=== PATIENT | female | born 1935 | race Caucasian/White ===

== ENCOUNTER 2016-12-11 06:17 | Inpatient (IN) ==
[2016-12-11] MEDS ORDERED: Ipratropium/Albuterol Neb 3 ML IH ONE (06:36)
--- NOTE | 2016-12-11 06:38 | Emergency Department Note ---
Disposition Clinical Impression: Congestive heart failure Disposition: Admitted As Inpatient Condition: Fair Referrals: Efrain Renteria MD [Primary Care Provider] - Forms: ED Satisfaction Letter Time of Disposition: 08:06 (eulogio saucedakasia) SOB HPI - General Chief Complaint: ED Shortness of Breath/Dyspnea Stated Complaint: tess Time Seen by Provider: 12/11/16 06:22 Source: patient Mode of arrival: ambulatory Limitations: no limitations Nursing Notes Reviewed: Yes Vital Signs Reviewed: Yes - History of Present Illness Increasing shortness of breath for the past couple of days worse today unable to catch her breath denies any blurred vision double vision is having cough congestion thinks that she may be bringing up some phlegm denies history of congestive heart failure denies chest pain or chest pressure or shortness of breath denies nausea, hematochezia Pt Subjective Complaint: shortness of breath, cough Onset (ago): day(s) Severity: severe Consistency/Duration: constant Improves with: nothing Worsens with: lying flat, exertion, movement, coughing Associated symptoms: Reports: cough, wheezing, sputum production, orthopnea. Denies: chest pain, pain with inspiration, fever, lower extremity pain, polyuria , polydipsia, parasthesias, palpitations, hemoptysis, diaphoresis, nausea/ vomiting, syncope, abdominal pain, sense of impending doom Treatment prior to arrival: oxygen, bronchodilator Cough present: Yes Cough Description: Involuntary, Productive, Strong Sputum production: Yes Sputum Amount: Moderate Sputum Color: Yellow - Related Data Home Medications Medication Instructions Recorded Confirmed Clopidogrel Bisulfate [Plavix] 75 mg PO DAILY 06/14/16 08/02/16 Metoprolol [Lopressor] 50 mg PO BID 06/14/16 08/02/16 Rosuvastatin Calcium [Crestor] 10 mg PO DAILY 06/14/16 08/02/16 Aspirin [Lo-Dose Aspirin EC] 81 mg PO DAILY 08/02/16 08/02/16 Citalopram [CeleXA] 20 mg PO DAILY 08/02/16 08/02/16 Ranitidine HCl [Zantac] 300 mg PO DAILY 08/02/16 08/02/16 Ranolazine [Ranexa] 500 mg PO BID 08/02/16 08/02/16 Valsartan [Diovan] 80 mg PO DAILY 08/02/16 08/02/16 Previous Rx's Medication Instructions Recorded Nitrofurantoin (BID) [Macrobid] 100 mg PO BID #14 capsule 08/02/16 Allergies Allergy/AdvReac Type Severity Reaction Status Date / Time Hydroxychloroquine Allergy Blurry Verified 12/11/16 06:18 [From Plaquenil] Vision Penicillins Allergy Swelling Verified 12/11/16 06:18 of Lip/Tongue/Throat All systems ED: reviewed and negative except as stated. Constitutional: Denies: fever, chills Eyes: Denies: eye pain ENT ED: Denies: congestion Cardiovascular: Denies: chest pain, palpitations Respiratory: Reports: cough, dyspnea, wheezes, sputum production Gastrointestinal: Denies: abdominal pain, nausea Genitourinary: Denies: urgency, dysuria Musculoskeletal: Denies: back pain Integumentary: Denies: abrasion Neurological: Denies: headache Psychiatric: Denies: anxiety Endocrine: Denies: fatigue Hematological/Lymphatic: Denies: easy bleeding Allergic/Immunologic: Denies: facial swelling Past Medical History - Past Medical History Attestation: Yes The following information was validated with the patient. Source: patient, old records reviewed, nursing notes reviewed Medical history: Reports: hypertension, myocardial infarction Psychiatric history: Reports: anxiety - Social History Smoking Status: Never smoker Smokeless Tobacco Status: No Alcohol use: Reports: none Drug use: Reports: none Physical Exam - General Limitations: no limitations General appearance: alert, in no apparent distress, anxious - Head Head exam: atraumatic, normocephalic, normal inspection - Eye Eye exam: Present: normal appearance, PERRL, EOMI - ENT ENT exam: normal exam, normal oropharynx, mucous membranes moist, TM's normal bilaterally, normal external ear exam - Neck Neck exam: Present: normal inspection, full ROM, trachea midline - Chest Chest inspection: Present: normal inspection, symmetric chest wall rise - Respiratory Respiratory exam: Present: accessory muscle use, prolonged expiratory phase, other (diminished wet moist cough) - Cardiovascular Cardiovascular exam: Present: regular rate, normal rhythm, normal heart sounds - Abdominal Exam Abdominal exam: Present: soft, Non-Tender, normal bowel sounds. Absent: mass, pulsatile mass - Extremities Exam Extremities exam: Present: normal inspection, full ROM, normal capillary refill. Absent: tenderness, joint swelling - Expanded Lower Extremity Exam Neurovascular/Tendon exam: Present: normal capillary refill, normal fine/light touch Gait: observed and normal - Back Exam Back exam: Present: normal inspection, full ROM. Absent: muscle spasm - Neurological Exam Neurological exam: Present: alert, oriented X3, CN II-XII intact - Psychiatric Psychiatric exam: Present: normal affect, normal mood - Skin Skin exam: Present: warm, dry, intact, normal color Course Course Narrative: pt seen and examined aerosol and cxr and lab - Reevaluation(s) Reevaluation #1: Labs show signs are consistent with congestive heart failure she was given Bumex will discuss with Dr. Park for possible admission versus transfer Vital Signs Temperature 98.9 F 12/11/16 06:18 Pulse Rate 95 12/11/16 06:18 Respiratory Rate 22 12/11/16 06:18 Blood Pressure 137/72 12/11/16 06:18 O2 Sat by Pulse Oximetry 92 12/11/16 06:18 Temperature 98.9 F 12/11/16 06:21 Pulse Rate 87 12/11/16 07:20 Respiratory Rate 22 12/11/16 07:20 Blood Pressure 127/68 12/11/16 07:20 O2 Sat by Pulse Oximetry 97 12/11/16 07:20 Oxygen Delivery Oxygen Delivery Nasal Cannula Shortness of Breath/Dyspnea - Differential Diagnosis Likely: acute exacerbation of chronic obstructive airways disease, congestive heart failure, pneumonia - Medical Records Medical records reviewed: Yes I reviewed the patient's medical records. - Lab Data Lab results reviewed: Yes I reviewed the patient's lab results. Result diagrams: 12/11/16 06:46 12/11/16 06:46 Lab Results 12/11/16 12/11/16 12/11/16 Range/Units 06:46 06:46 06:46 WBC 9.0 (4.3-11.1) K/mcL RBC 3.28 L (3.82-4.97) M/mcL Hgb 11.2 L (11.5-15.4) g/dL Hct 35.0 L (35.3-44.9) % MCV 106.7 H (83.0-100.0) fL MCH 34.1 H (28.0-33.3) pg MCHC 32.0 (31.6-35.5) g/dL RDW 13.4 (11.5-14.5) % Plt Count 128 L (140-400) K/mcL MPV 11.0 (9.4-12.4) fL Immature Gran % 0.7 (0-4) % Seg Neutrophils % 78.9 % Lymphocytes % 12.5 % Monocytes % 5.6 % Eosinophils % 2.1 % Basophils % 0.2 % Neutrophils # 7.1 (1.6-8.9) K/mcL Lymphocytes # 1.1 (0.6-4.6) K/mcL Monocytes # 0.5 (0.0-1.3) K/mcL Eosinophils # 0.2 (0.0-0.6) K/mcL Basophils # 0.0 (0.0-0.2) K/mcL PT (9.4-12.1) Seconds INR APTT 24.7 L (26.0-36.0) Seconds VBG Lactic Acid (0.5-2.2) mmol/L Sodium 141 (136-145) mEq/L Potassium 4.5 (3.5-4.5) mEq/L Chloride 108 (98-109) mEq/L Carbon Dioxide 21 (19-29) mEq/L BUN 25 H (7-20) mg/dL Creatinine 1.51 H (0.57-1.11) mg/dL Est GFR ( Amer) 40 L (> 60) Est GFR (Non-Af Amer) 33 L (> 60) BUN/Creatinine Ratio 17 (6-26) Glucose 185 H (70-99) mg/dL Calculated Osmolality 301 H (280-300) Calcium 9.1 (8.6-10.8) mg/dL Total Bilirubin 0.7 (0.2-1.2) mg/dL AST 27 (5-34) Units/L ALT 19 (0-55) Units/L Alkaline Phosphatase 68 (38-126) Units/L Troponin I (0-0.03) ng/mL B-Natriuretic Peptide (0-100) pg/mL Serum Total Protein 6.9 (6.0-8.3) g/dL Albumin 3.6 (3.5-5.0) g/dL Globulin 3.3 (2.4-3.5) g/dL Albumin/Globulin Ratio 1.1 (1.1-2.2) 12/11/16 12/11/16 12/11/16 Range/Units 06:46 06:46 06:46 WBC (4.3-11.1) K/mcL RBC (3.82-4.97) M/mcL Hgb (11.5-15.4) g/dL Hct (35.3-44.9) % MCV (83.0-100.0) fL MCH (28.0-33.3) pg MCHC (31.6-35.5) g/dL RDW (11.5-14.5) % Plt Count (140-400) K/mcL MPV (9.4-12.4) fL Immature Gran % (0-4) % Seg Neutrophils % % Lymphocytes % % Monocytes % % Eosinophils % % Basophils % % Neutrophils # (1.6-8.9) K/mcL Lymphocytes # (0.6-4.6) K/mcL Monocytes # (0.0-1.3) K/mcL Eosinophils # (0.0-0.6) K/mcL Basophils # (0.0-0.2) K/mcL PT 12.1 (9.4-12.1) Seconds INR 1.1 APTT (26.0-36.0) Seconds VBG Lactic Acid (0.5-2.2) mmol/L Sodium (136-145) mEq/L Potassium (3.5-4.5) mEq/L Chloride (98-109) mEq/L Carbon Dioxide (19-29) mEq/L BUN (7-20) mg/dL Creatinine (0.57-1.11) mg/dL Est GFR ( Amer) (> 60) Est GFR (Non-Af Amer) (> 60) BUN/Creatinine Ratio (6-26) Glucose (70-99) mg/dL Calculated Osmolality (280-300) Calcium (8.6-10.8) mg/dL Total Bilirubin (0.2-1.2) mg/dL AST (5-34) Units/L ALT (0-55) Units/L Alkaline Phosphatase (38-126) Units/L Troponin I 0.06 H* (0-0.03) ng/mL B-Natriuretic Peptide 1648 H (0-100) pg/mL Serum Total Protein (6.0-8.3) g/dL Albumin (3.5-5.0) g/dL Globulin (2.4-3.5) g/dL Albumin/Globulin Ratio (1.1-2.2) 12/11/16 Range/Units 06:46 WBC (4.3-11.1) K/mcL RBC (3.82-4.97) M/mcL Hgb (11.5-15.4) g/dL Hct (35.3-44.9) % MCV (83.0-100.0) fL MCH (28.0-33.3) pg MCHC (31.6-35.5) g/dL RDW (11.5-14.5) % Plt Count (140-400) K/mcL MPV (9.4-12.4) fL Immature Gran % (0-4) % Seg Neutrophils % % Lymphocytes % % Monocytes % % Eosinophils % % Basophils % % Neutrophils # (1.6-8.9) K/mcL Lymphocytes # (0.6-4.6) K/mcL Monocytes # (0.0-1.3) K/mcL Eosinophils # (0.0-0.6) K/mcL Basophils # (0.0-0.2) K/mcL PT (9.4-12.1) Seconds INR APTT (26.0-36.0) Seconds VBG Lactic Acid 1.9 (0.5-2.2) mmol/L Sodium (136-145) mEq/L Potassium (3.5-4.5) mEq/L Chloride (98-109) mEq/L Carbon Dioxide (19-29) mEq/L BUN (7-20) mg/dL Creatinine (0.57-1.11) mg/dL Est GFR ( Amer) (> 60) Est GFR (Non-Af Amer) (> 60) BUN/Creatinine Ratio (6-26) Glucose (70-99) mg/dL Calculated Osmolality (280-300) Calcium (8.6-10.8) mg/dL Total Bilirubin (0.2-1.2) mg/dL AST (5-34) Units/L ALT (0-55) Units/L Alkaline Phosphatase (38-126) Units/L Troponin I (0-0.03) ng/mL B-Natriuretic Peptide (0-100) pg/mL Serum Total Protein (6.0-8.3) g/dL Albumin (3.5-5.0) g/dL Globulin (2.4-3.5) g/dL Albumin/Globulin Ratio (1.1-2.2) - Radiology Data Radiology results reviewed: Yes I reviewed the patient's radiology results. ITS Impressions Chest X-Ray 12/11/16 06:35 IMPRESSION: 1. Central congestion without overt pulmonary edema. 2. Small left pleural effusion. 3. Severe left glenohumeral degenerative changes. D/ / Homero Lantigua MD / Homero Lantigua MD Interpreting Provider: Homero Lantigua MD - EKG Data EKG attestation: Yes I reviewed and interpreted this EKG. EKG results narrative: sinus Rhythm nonspecific T-wave change unifocal PVC rate 94 pr 188 QRS 95 QT 333 axis -17 Critical Care Time Critical Care Time: No
[2016-12-11 07:02] LABS: Basophils % 0.2 %; Eosinophils # 0.2 K/mcL (0.0-0.6); Eosinophils % 2.1 %; Hemoglobin 11.2 g/dL (11.5-15.4); Immature Granulocytes % 0.7 % (0-4); Lymphocytes # 1.1 K/mcL (0.6-4.6); Lymphocytes % 12.5 %; Mean Corpuscular Hemoglobin 34.1 pg (28.0-33.3); Mean Corpuscular Volume 106.7 fL (83.0-100.0); Monocytes # 0.5 K/mcL (0.0-1.3); Monocytes % 5.6 %; Neutrophils # 7.1 K/mcL (1.6-8.9); Platelet Count 128 K/mcL (140-400); Red Blood Count 3.28 M/mcL (3.82-4.97); Red Cell Distribution Width 13.4 % (11.5-14.5); Segmented Neutrophils % 78.9 %
[2016-12-11 07:08] LABS: INR 1.1; Prothrombin Time 12.1 Seconds (9.4-12.1)
[2016-12-11 07:17] LABS: Albumin 3.6 g/dL (3.5-5.0); Albumin/Globulin Ratio 1.1 (1.1-2.2); Bilirubin,Total 0.7 mg/dL (0.2-1.2); Calcium 9.1 mg/dL (8.6-10.8); Globulin 3.3 g/dL (2.4-3.5); Potassium 4.5 mEq/L (3.5-4.5); Total Protein 6.9 g/dL (6.0-8.3)
[2016-12-11] MEDS ORDERED: Bumetanide 1 MG/4 ML VIAL IVP ONE (07:25)
[2016-12-11] MEDS ORDERED: Ondansetron ODT 4 MG TAB.RAPDIS SL PRN (08:30)
[2016-12-11] MEDS ORDERED: Naloxone 0.4 MG/ML INJ IVP PRN (08:30)
[2016-12-11 08:54] LABS: Bilirubin,Urine Negative (Negative); Blood,Urine Negative (Negative); Clarity,Urine Clear (Clear); Color,Urine Yellow (Yellow); Glucose,Urine (UA) Normal (Normal); Ketones,Urine Negative (Negative); Leukocyte Esterase,Urine Negative (Negative); Nitrite,Urine Negative (Negative); Protein,Urine Negative (Neg-Trace); Specific Gravity,Urine 1.015 (1.010-1.025); Urobilinogen,Urine Normal (Normal)
[2016-12-11] MEDS ORDERED: Nitrofurantoin (BID) 100 MG CAPSULE PO SCH (09:00)
[2016-12-11] MEDS: Valsartan 80 MG TABLET PO SCH (09:35)
[2016-12-11] MEDS: Aspirin Enteric Coated 81 MG Tablet PO SCH (09:35)
[2016-12-11] MEDS: Ranolazine 500 MG TAB.ER.12H PO SCH ×2 (09:36→20:43)
[2016-12-11] MEDS: Famotidine 20 MG TABLET PO SCH (09:36)
[2016-12-11] MEDS: Bumetanide 1 MG/4 ML VIAL IVP SCH (17:37)
--- NOTE | 2016-12-11 17:38 | Internal Med History&Physical ---
Date of Encounter: 12/11/16 Time of Encounter: 16:45 Assessment and Plan (1) Dyspnea Current visit: Yes Status: Chronic Suspect multifactorial etiology including underlying systolic and diastolic heart failure with possible superimposed respiratory infection Qualifiers: Dyspnea type: unspecified Qualified Code(s): R06.00 - Dyspnea, unspecified (2) CKD (chronic kidney disease) stage 3, GFR 30-59 ml/min Current visit: Yes Status: Chronic Renal indices will be monitored periodically. (3) Macrocytic anemia Current visit: Yes Status: Chronic Anemia testing and TSH will be ordered in a.m. (4) Hypertension Current visit: Yes Status: Chronic Continue Diovan and Lopressor. IV Bumex has been ordered Qualifiers: Hypertension type: essential hypertension Qualified Code(s): I10 - Essential (primary) hypertension (5) ASHD (arteriosclerotic heart disease) Current visit: Yes Status: Acute Continue aspirin, Plavix, and Lopressor. Will add isosorbide. Internal Medicine - H&P: HPI Chief complaint: Dyspnea Admitted From: Home Plans for Post Hospital Care: Home History of present illness: Ms. Palomo is a 81 year old female who came to emergency room complaining of increased dyspnea onset December 09. She reports she was having a minimally productive cough and felt she was getting a "cold". She denies chest pain vomiting or diarrhea. She was evaluated in emergency room and was felt to have exacerbation of CHF. She was admitted to [facility] floor for ongoing care needs. Her cardiovascular history is significant for hypertension. She has known ASHD and has had 3 myocardial infarctions with the most recent 2013. She had 5 vessel CABG 2012. She had 3 cardiac stents placed in 2002. Her most recent heart catheter was 2013 at the last [place] without further intervention done. Echocardiogram done August 2016 showed LVEF of 25-30%. There was mild diastolic dysfunction and severe global LV systolic dysfunction. There was mild -to-moderate AR. The estimated RVSP was elevated at 43 mmHg. She has had 8 syncopal episodes with falls with the most recent one being approximately 5 weeks ago. She is presently wearing a threat monitoring analyst which was ordered by her [place] warp hanger. She had DVT 2004 and was briefly on Coumadin. Past Med Surg Social Fam HX - Past Medical History Medical history: CHF, hypertension, myocardial infarction Psychiatric history: anxiety - Past Surgical History Surgical History: cholecystectomy, hysterectomy - Social History Smoking Status: Never smoker Smokeless Tobacco Status: No Alcohol use: none Drug use: none Internal Medicine - H&P: Meds Clopidogrel Bisulfate [Plavix] 75 mg PO DAILY 06/14/16 [History] Metoprolol [Lopressor] 50 mg PO BID 06/14/16 [History] Rosuvastatin Calcium [Crestor] 10 mg PO DAILY 06/14/16 [History] Aspirin [Lo-Dose Aspirin EC] 81 mg PO DAILY 08/02/16 [History] Citalopram [CeleXA] 20 mg PO DAILY 08/02/16 [History] Nitrofurantoin (BID) [Macrobid] 100 mg PO BID #14 capsule 08/02/16 [Rx] Ranitidine HCl [Zantac] 300 mg PO DAILY 08/02/16 [History] Ranolazine [Ranexa] 500 mg PO BID 08/02/16 [History] Valsartan [Diovan] 80 mg PO QWEEK 08/02/16 [History] Allergies Hydroxychloroquine [From Plaquenil] Allergy (Verified 12/11/16 06:18) Blurry Vision Penicillins Allergy (Verified 12/11/16 06:18) Swelling of Lip/Tongue/Throat All Systems PM: A 10-system review of systems was performed and is negative for pertinent findings except as documented above in the HPI. Review of systems: Gen.: She states her weight has been stable the past few months Cardiovascular: As per history of present illness Respiratory: She is a lifelong nonsmoker and has no documented chronic lung disease GI: She has had cholecystectomy. She denies disorders of her liver or exocrine pancreas. She denies melena or hematochezia vomiting or diarrhea. : She was told that she had kidney failure at the time of her CABG in 2012. She has had remote kidney stone. She denies other kidney or bladder disorders. She has had a hysterectomy and bladder suspension surgery Neurologic: She denies large distribution strokes or seizures. Endocrine: She has hyperlipidemia but denies diabetes or thyroid disease Hematology/oncology: She denies blood disorders cancers or anemia Psychiatric: She has anxiety but denies depression or other mental health issues Musk skeletal: She has rheumatoid arthritis and DJD. She has had multiple back surgeries. She has had bilateral total hip replacements and a left total knee replacement remotely. - Constitutional Vitals: Temp Pulse Resp BP Pulse Ox 98.2 F 67 16 126/66 97 12/11/16 15:41 12/11/16 15:41 12/11/16 15:41 12/11/16 15:41 12/11/16 15:41 Exam: Gen.: She is a well-developed well-nourished female who appears mildly dyspneic at the present time HEENT: Head is atraumatic and normocephalic. Eyes: EOMI. There is no scleral icterus. Mouth: Mucosa is moist. Neck: Supple and nontender. There is no thyromegaly or adenopathy noted. Heart: Regular without murmurs gallops or ectopics Lungs: No wheezes or crackles are heard. She has mild prolonged expiratory phase. Abdomen: Soft and nontender. No masses or guarding are noted. Extremities: There is no cyanosis edema or clubbing noted. Dorsalis pedis and posttibial pulses are 1-2 over 2 bilaterally. Neurologic: Mental status: She is talkative and a good historian. Cranial nerves: Smile is symmetric. Forehead wrinkles bilaterally. Tongue protrudes midline. EOMI. Motor: There is no pronator drift. Cerebellar: Finger to nose is intact bilaterally. Skin: Warm and dry Internal Med - H&P Results - Labs CBC & Chem 7: 12/11/16 06:46 12/11/16 06:46 Labs: Cardiac Enzymes 12/11/16 Range/Units 11:55 Troponin I 0.07 H* (0-0.03) ng/mL Urine 12/11/16 Range/Units 08:44 Urine Color Yellow (Yellow) Urine Clarity Clear (Clear) Urine pH 5.0 (5.0-8.0) pH Units Ur Specific [place] 1.015 (1.010-1.025) Urine Protein Negative (Neg-Trace) mg/dL Urine Glucose (UA) Normal (Normal) mg/dL
[2016-12-11] MEDS: Isosorbide MONOnitrate (24 HR) 30 MG TAB.ER.24H PO SCH (18:38)
[2016-12-12 05:57] LABS: Basophils % 0.1 %; Hematocrit 31.7 % (35.3-44.9); Hemoglobin 10.4 g/dL (11.5-15.4); Immature Granulocytes % 0.5 % (0-4); Lymphocytes # 0.7 K/mcL (0.6-4.6); Lymphocytes % 6.9 %; Mean Corpuscular HGB Conc 32.8 g/dL (31.6-35.5); Mean Corpuscular Hemoglobin 34.6 pg (28.0-33.3); Mean Corpuscular Volume 105.3 fL (83.0-100.0); Mean Platelet Volume 10.9 fL (9.4-12.4); Monocytes # 0.6 K/mcL (0.0-1.3); Monocytes % 5.7 %; Neutrophils # 8.3 K/mcL (1.6-8.9); Platelet Count 131 K/mcL (140-400); Red Blood Count 3.01 M/mcL (3.82-4.97); Red Cell Distribution Width 13.6 % (11.5-14.5); Segmented Neutrophils % 86.8 %
[2016-12-12 06:19] LABS: Calcium 9.1 mg/dL (8.6-10.8); Magnesium 2.2 mg/dL (1.6-2.6); Phosphorous 4.6 mg/dL (2.3-4.7); Potassium 4.4 mEq/L (3.5-4.5)
[2016-12-12] MEDS: Isosorbide MONOnitrate (24 HR) 30 MG TAB.ER.24H PO SCH (08:25)
[2016-12-12] MEDS: Ranolazine 500 MG TAB.ER.12H PO SCH ×2 (08:25→20:16)
[2016-12-12] MEDS: Famotidine 20 MG TABLET PO SCH (08:25)
[2016-12-12] MEDS: Aspirin Enteric Coated 81 MG Tablet PO SCH (08:25)
[2016-12-12] MEDS: Valsartan 80 MG TABLET PO SCH (08:26)
--- NOTE | 2016-12-12 10:15 | Internal Med Progress Note ---
Date of Encounter: 12/12/16 Time of Encounter: 10:00 - Assessment and plan (1) Dyspnea Current Visit: Yes Status: Chronic Assessment and plan: December 12. We will add Symbicort and order chest CT since the WBC differential is shifted further to the left. Qualifiers: Dyspnea type: unspecified Qualified Code(s): R06.00 - Dyspnea, unspecified (2) CKD (chronic kidney disease) stage 3, GFR 30-59 ml/min Current Visit: Yes Status: Chronic Assessment and plan: December 12. Renal indices slightly improved today. Continue to monitor periodically. (3) Macrocytic anemia Current Visit: Yes Status: Chronic Assessment and plan: December 12. We will check anemia testing and TSH. (4) Hypertension Current Visit: Yes Status: Chronic Assessment and plan: December 12. Blood pressure satisfactorily controlled. Continue Diovan, Lopressor, and IV Bumex Qualifiers: Hypertension type: essential hypertension Qualified Code(s): I10 - Essential (primary) hypertension (5) ASHD (arteriosclerotic heart disease) Current Visit: Yes Status: Acute Assessment and plan: December 12. Continue aspirin, Plavix, Lopressor, and isosorbide - Subjective Interval history: December 12. She is still dyspneic but states she is improved. - Constitutional Vitals: Temp Pulse Resp BP Pulse Ox 97.6 F 69 16 119/69 98 12/12/16 07:55 12/12/16 07:55 12/12/16 07:55 12/12/16 07:55 12/12/16 07:55 Exam: Her affect is bright and cheerful. Heart is regular without murmurs gallops or ectopics. Lungs show slightly prolonged expiratory phase but no audible wheezing. There are no inspiratory crackles. I reviewed her medications and lab results. Internal Medicine: Result - Labs CBC & Chem 7: 12/12/16 05:34 12/12/16 05:34 Labs: Short CBC 12/12/16 Range/Units 05:34 WBC 9.6 (4.3-11.1) K/mcL Hgb 10.4 L (11.5-15.4) g/dL Hct 31.7 L (35.3-44.9) % Plt Count 131 L (140-400) K/mcL Neutrophils # 8.3 (1.6-8.9) K/mcL BMP 12/12/16 05:34 Sodium 141 Potassium 4.4 Chloride 107 Carbon Dioxide 23 BUN 33 H Creatinine 1.28 H Glucose 118 H Calcium 9.1 Cardiac Enzymes 12/11/16 Range/Units 11:55 Troponin I 0.07 H* (0-0.03) ng/mL - ABG Interpretation ABG results: PT/INR, D-dimer PT 12.1 Seconds (9.4-12.1) 12/11/16 06:46 Consult Discharge Plan - Plan Referrals: Efrain Renteria MD [Primary Care Provider] - 1 week
--- NOTE | 2016-12-12 10:41 | Electrocardiograph Report ---
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
[2016-12-12] MEDS: Bumetanide 1 MG/4 ML VIAL IVP SCH ×2 (11:06→17:27)
[2016-12-12] MEDS: Budesonide/Formoterol 160/4.5 MDI IH SCH ×2 (11:32→21:15)
[2016-12-12] MEDS: Albuterol 2.5 MG/3 ML NEBULIZER IH PRN ×4 (11:53→21:15)
[2016-12-12] MEDS: *HR* Enoxaparin 30 MG/0.3 ML SYRINGE SQ SCH (17:26)
[2016-12-13 06:24] LABS: Albumin 3.4 g/dL (3.5-5.0); Albumin/Globulin Ratio 1.2 (1.1-2.2); Bilirubin,Total 0.6 mg/dL (0.2-1.2); Calcium 9.1 mg/dL (8.6-10.8); Globulin 2.8 g/dL (2.4-3.5); Potassium 4.1 mEq/L (3.5-4.5); Total Protein 6.2 g/dL (6.0-8.3)
[2016-12-13] MEDS: *HR* Enoxaparin 30 MG/0.3 ML SYRINGE SQ SCH (06:36)
[2016-12-13 06:47] LABS: Thyroid Stimulating Hormone 1.186 mcIU/mL (0.350-4.840)
[2016-12-13] MEDS: Albuterol 2.5 MG/3 ML NEBULIZER IH PRN ×3 (08:12→18:01)
[2016-12-13] MEDS: Budesonide/Formoterol 160/4.5 MDI IH SCH ×2 (08:13→22:05)
[2016-12-13] MEDS: Bumetanide 1 MG/4 ML VIAL IVP SCH ×2 (09:22→09:34)
[2016-12-13] MEDS: Isosorbide MONOnitrate (24 HR) 30 MG TAB.ER.24H PO SCH (09:23)
[2016-12-13] MEDS: Ranolazine 500 MG TAB.ER.12H PO SCH ×2 (09:23→21:12)
[2016-12-13] MEDS: Aspirin Enteric Coated 81 MG Tablet PO SCH (09:23)
[2016-12-13] MEDS: Valsartan 80 MG TABLET PO SCH (09:23)
[2016-12-13] MEDS: Famotidine 20 MG TABLET PO SCH (09:25)
--- NOTE | 2016-12-13 09:31 | Internal Med Progress Note ---
Date of Encounter: 12/13/16 Time of Encounter: 09:20 - Assessment and plan (1) Dyspnea Current Visit: Yes Status: Chronic Assessment and plan: December 12. We will add Symbicort and order chest CT since the WBC differential is shifted further to the left. December 13. Improved. Continue present regimen Qualifiers: Dyspnea type: unspecified Qualified Code(s): R06.00 - Dyspnea, unspecified (2) CKD (chronic kidney disease) stage 3, GFR 30-59 ml/min Current Visit: Yes Status: Chronic Assessment and plan: December 12. Renal indices slightly improved today. Continue to monitor periodically. December 13. Renal indices stable. (3) Macrocytic anemia Current Visit: Yes Status: Chronic Assessment and plan: December 12. We will check anemia testing and TSH. December 13. Anemia testing is pending. TSH was normal at 1.186. (4) Hypertension Current Visit: Yes Status: Chronic Assessment and plan: December 12. Blood pressure satisfactorily controlled. Continue Diovan, Lopressor, and IV Bumex Qualifiers: Hypertension type: essential hypertension Qualified Code(s): I10 - Essential (primary) hypertension (5) ASHD (arteriosclerotic heart disease) Current Visit: Yes Status: Acute Assessment and plan: December 12. Continue aspirin, Plavix, Lopressor, and isosorbide (6) Thyroid nodule Current Visit: Yes Status: Acute Assessment and plan: December 13. Chest CT showed an 18 mm right lobe thyroid nodule. This can be further evaluated as an outpatient. Clinically euthyroid - Subjective Interval history: December 12. She is still dyspneic but states she is improved. December 13. Her dyspnea has improved. She has some diffuse arthritis pains. - Constitutional Vitals: Temp Pulse Resp BP Pulse Ox 97.6 F 67 15 124/72 99 12/13/16 06:32 12/13/16 06:32 12/13/16 08:14 12/13/16 06:32 12/13/16 08:14 Exam: She is resting comfortably in bed. Her heart is regular without murmurs gallops or ectopics. Lungs show no inspiratory crackles or wheezing. There is no extremity edema. I reviewed her medications, lab results, and CT chest report. Internal Medicine: Result - Labs CBC & Chem 7: 12/12/16 05:34 12/13/16 05:48 Labs: BMP 12/13/16 05:48 Sodium 141 Potassium 4.1 Chloride 104 Carbon Dioxide 25 BUN 36 H Creatinine 1.29 H Glucose 84 Calcium 9.1 Liver Function 12/13/16 Range/Units 05:48 Total Bilirubin 0.6 (0.2-1.2) mg/dL AST 24 (5-34) Units/L ALT 20 (0-55) Units/L Alkaline Phosphatase 56 (38-126) Units/L Albumin 3.4 L (3.5-5.0) g/dL - ABG Interpretation ABG results: PT/INR, D-dimer PT 12.1 Seconds (9.4-12.1) 12/11/16 06:46 Consult Discharge Plan - Plan Referrals: Efrain Renteria MD [Primary Care Provider] - 1 week
[2016-12-13 11:45] LABS: Folate 10.3 ng/mL (7.0-31.4)
[2016-12-13] MEDS: Acetaminophen 325 MG TABLET PO PRN ×2 (13:16→21:12)
[2016-12-13] MEDS: Bumetanide 1 MG TABLET PO SCH (13:18)
[2016-12-14 05:56] LABS: Basophils % 0.4 %; Eosinophils # 0.4 K/mcL (0.0-0.6); Eosinophils % 8.1 %; Hematocrit 34.9 % (35.3-44.9); Hemoglobin 11.3 g/dL (11.5-15.4); Immature Granulocytes % 0.5 % (0-4); Lymphocytes # 0.9 K/mcL (0.6-4.6); Lymphocytes % 16.5 %; Mean Corpuscular HGB Conc 32.4 g/dL (31.6-35.5); Mean Corpuscular Hemoglobin 34.2 pg (28.0-33.3); Mean Corpuscular Volume 105.8 fL (83.0-100.0); Mean Platelet Volume 11.2 fL (9.4-12.4); Monocytes # 0.6 K/mcL (0.0-1.3); Monocytes % 10.8 %; Neutrophils # 3.5 K/mcL (1.6-8.9); Platelet Count 140 K/mcL (140-400); Red Cell Distribution Width 13.3 % (11.5-14.5); Segmented Neutrophils % 63.7 %
[2016-12-14 06:13] LABS: Calcium 9.3 mg/dL (8.6-10.8); Potassium 4.3 mEq/L (3.5-4.5)
[2016-12-14] MEDS: *HR* Enoxaparin 30 MG/0.3 ML SYRINGE SQ SCH (06:31)
[2016-12-14] MEDS: Aspirin Enteric Coated 81 MG Tablet PO SCH (08:24)
[2016-12-14] MEDS: Valsartan 80 MG TABLET PO SCH (08:24)
[2016-12-14] MEDS: Bumetanide 1 MG TABLET PO SCH (08:24)
[2016-12-14] MEDS: Ranolazine 500 MG TAB.ER.12H PO SCH ×2 (08:25→20:49)
[2016-12-14] MEDS: Famotidine 20 MG TABLET PO SCH (08:25)
[2016-12-14] MEDS: Isosorbide MONOnitrate (24 HR) 30 MG TAB.ER.24H PO SCH (08:25)
[2016-12-14] MEDS: Budesonide/Formoterol 160/4.5 MDI IH SCH ×2 (10:36→22:02)
--- NOTE | 2016-12-14 16:01 | Internal Med Progress Note ---
Date of Encounter: 12/14/16 Time of Encounter: 15:50 - Assessment and plan (1) Dyspnea Current Visit: Yes Status: Chronic Assessment and plan: December 12. We will add Symbicort and order chest CT since the WBC differential is shifted further to the left. December 13. Improved. Continue present regimen December 14. Further improved. Anticipate discharge to [facility] tomorrow Qualifiers: Dyspnea type: unspecified Qualified Code(s): R06.00 - Dyspnea, unspecified (2) CKD (chronic kidney disease) stage 3, GFR 30-59 ml/min Current Visit: Yes Status: Chronic Assessment and plan: December 12. Renal indices slightly improved today. Continue to monitor periodically. December 13. Renal indices stable. (3) Macrocytic anemia Current Visit: Yes Status: Chronic Assessment and plan: December 12. We will check anemia testing and TSH. December 13. Anemia testing is pending. TSH was normal at 1.186. December 14. Anemia testing unremarkable. Suspect anemia due primarily to chronic kidney disease. (4) Hypertension Current Visit: Yes Status: Chronic Assessment and plan: December 12. Blood pressure satisfactorily controlled. Continue Diovan, Lopressor, and IV Bumex Qualifiers: Hypertension type: essential hypertension Qualified Code(s): I10 - Essential (primary) hypertension (5) ASHD (arteriosclerotic heart disease) Current Visit: Yes Status: Acute Assessment and plan: December 12. Continue aspirin, Plavix, Lopressor, and isosorbide (6) Thyroid nodule Current Visit: Yes Status: Acute Assessment and plan: December 13. Chest CT showed an 18 mm right lobe thyroid nodule. This can be further evaluated as an outpatient. Clinically euthyroid - Subjective Interval history: December 12. She is still dyspneic but states she is improved. December 13. Her dyspnea has improved. She has some diffuse arthritis pains. December 14. She has no new complaints and feels better. - Constitutional Vitals: Temp Pulse Resp BP Pulse Ox 98.3 F 64 19 91/39 95 12/14/16 15:05 12/14/16 15:05 12/14/16 15:05 12/14/16 15:05 12/14/16 15:05 Exam: She is resting comfortably in bed and is in no acute distress. She is not dyspneic when she talks. Her affect is bright and cheerful. I reviewed her medications and lab results. Internal Medicine: Result - Labs CBC & Chem 7: 12/14/16 04:56 12/14/16 04:56 Labs: Short CBC 12/14/16 Range/Units 04:56 WBC 5.5 (4.3-11.1) K/mcL Hgb 11.3 L (11.5-15.4) g/dL Hct 34.9 L (35.3-44.9) % Plt Count 140 (140-400) K/mcL Neutrophils # 3.5 (1.6-8.9) K/mcL BMP 12/14/16 04:56 Sodium 143 Potassium 4.3 Chloride 102 Carbon Dioxide 28 BUN 30 H Creatinine 1.34 H Glucose 87 Calcium 9.3 - ABG Interpretation ABG results: PT/INR, D-dimer PT 12.1 Seconds (9.4-12.1) 12/11/16 06:46 Consult Discharge Plan - Plan Referrals: Efrain Renteria MD [Primary Care Provider] - 1 week
[2016-12-14] MEDS: Acetaminophen 325 MG TABLET PO PRN (17:44)
[2016-12-15] MEDS ORDERED: *HR* Enoxaparin 40 MG/0.4 ML SYRINGE SQ SCH (06:00)
[2016-12-15 06:28] VITALS: BP 135/76
[2016-12-15] MEDS: Acetaminophen 325 MG TABLET PO PRN (08:39)
[2016-12-15] MEDS: Ranolazine 500 MG TAB.ER.12H PO SCH (08:39)
[2016-12-15] MEDS: Famotidine 20 MG TABLET PO SCH (08:39)
[2016-12-15] MEDS: Bumetanide 1 MG TABLET PO SCH (08:39)
[2016-12-15] MEDS: Valsartan 80 MG TABLET PO SCH (08:40)
[2016-12-15] MEDS: Isosorbide MONOnitrate (24 HR) 30 MG TAB.ER.24H PO SCH (08:40)
[2016-12-15] MEDS: Aspirin Enteric Coated 81 MG Tablet PO SCH (08:40)
--- NOTE | 2016-12-15 09:28 | Discharge Summary ---
Date of Encounter: 12/15/16 Time of Encounter: 09:17 - Discharge Diagnosis (1) Congestive heart failure Priority: Primary Status: Acute Qualifiers: Congestive heart failure type: systolic Congestive heart failure chronicity : acute on chronic Qualified Code(s): I50.23 - Acute on chronic systolic ( congestive) heart failure (2) CKD (chronic kidney disease) stage 3, GFR 30-59 ml/min Priority: Secondary Status: Chronic (3) Macrocytic anemia Priority: Secondary Status: Chronic (4) Hypertension Priority: Secondary Status: Chronic Qualifiers: Hypertension type: essential hypertension Qualified Code(s): I10 - Essential (primary) hypertension (5) ASHD (arteriosclerotic heart disease) Priority: Secondary Status: Acute (6) Thyroid nodule Priority: Secondary Status: Acute - Discharge Medications Home Medications: Clopidogrel Bisulfate [Plavix] 75 mg PO DAILY 06/14/16 [History] Metoprolol [Lopressor] 50 mg PO BID 06/14/16 [History] Rosuvastatin Calcium [Crestor] 10 mg PO DAILY 06/14/16 [History] Aspirin [Lo-Dose Aspirin EC] 81 mg PO DAILY 08/02/16 [History] Citalopram [CeleXA] 20 mg PO DAILY 08/02/16 [History] Ranitidine HCl [Zantac] 300 mg PO DAILY 08/02/16 [History] Ranolazine [Ranexa] 500 mg PO BID 08/02/16 [History] Valsartan [Diovan] 80 mg PO QWEEK 08/02/16 [History] Albuterol Neb [Proventil Neb] 2.5 mg IH Q2H PRN #0 inhsol 12/15/16 [Rx] Bumetanide [Bumex] 1 mg PO DAILY tablet 12/15/16 [Rx] DiphenhydraMINE [Benadryl] 25 mg PO HS PRN #0 capsule 12/15/16 [Rx] Isosorbide MONOnitrate (24 HR) [Imdur] 30 mg PO DAILY tab.er.24h 12/15/16 [Rx] Allergies/Adverse Reactions: Allergies Hydroxychloroquine [From Plaquenil] Allergy (Verified 12/11/16 06:18) Blurry Vision Penicillins Allergy (Verified 12/11/16 06:18) Swelling of Lip/Tongue/Throat Date of admission: 12/12/16 12:35 Primary care physician: Efrain Renteria MD Consults: 12/13/16 10:32 Consult to Occupational Therapy [CONS] Routine Comment: Evaluate, develop and implement POC Reason for Consult: Weakness and dyspnea Consult to Physical Therapy [CONS] Routine Comment: Evaluate, develop and implement POC Reason for Consult: Weakness and dyspnea - Patient Status Disposition: Transfer SNF Condition: Fair Functional capacity at discharge: uses cane/walker Overall status at discharge: patient is progressing back to baseline - Discharge Instructions - Diet and Activity Activity: as per physical therapy Diet: low salt diet Hospital course: Ms. Palomo is a 81 year old female who came to emergency room complaining of increased dyspnea onset December 09. She reports she was having a minimally productive cough and felt she was getting a "cold". She denies chest pain vomiting or diarrhea. She was evaluated in emergency room and was felt to have exacerbation of CHF. She was admitted to [facility] for ongoing care needs. Initial orders were written by the emergency room physician. I saw her on December 11 and performed a history and physical. She was started on IV Bumex. Lopressor and Diovan were continued. Isosorbide was added. Her dyspnea gradually resolved over the course of hospitalization. BN peptide improved to 697 by the day prior to discharge. Renal indices remained stable with creatinine 1.34 and estimated GFR 38 on 12/14. Anemia testing showed no factor deficiency. TSH was normal at 1.186. Chest CT was done for further evaluation her dyspnea. An 18 mm right thyroid nodule was noted. No significant pathology was seen otherwise in her lungs. She was clinically euthyroid. Further workup on the nodule can be done as an outpatient . On December 15 arrangements were complete for her to be discharged to [facility] for ongoing rehabilitation therapy. She will follow with me there - Time Spent with Patient Total time spent providing and/or coordinating discharge services: - Constitutional Vitals: Temp Pulse Resp BP Pulse Ox 98.0 F 68 16 135/76 94 12/15/16 06:24 12/15/16 06:24 12/15/16 06:24 12/15/16 06:24 12/15/16 06:24
--- NOTE | 2016-12-15 09:38 | Physician Discharge Referral ---
ExtendedCare Referral Info Transfer To: [facility] Provider in Charge: Xavier Provider in Charge after Transfer: PCP (Xavier) - Diagnosis (1) Congestive heart failure Priority: Primary Status: Acute (2) CKD (chronic kidney disease) stage 3, GFR 30-59 ml/min Priority: Secondary Status: Chronic (3) Macrocytic anemia Priority: Secondary Status: Chronic (4) Hypertension Priority: Secondary Status: Chronic (5) ASHD (arteriosclerotic heart disease) Priority: Secondary Status: Acute (6) Thyroid nodule Priority: Secondary Status: Acute Prognosis: Good Aware of Diagnosis: Patient, Family Aware of Prognosis: Patient, Family - Transfer Medications Home Medications: Clopidogrel Bisulfate [Plavix] 75 mg PO DAILY 06/14/16 [History] Metoprolol [Lopressor] 50 mg PO BID 06/14/16 [History] Rosuvastatin Calcium [Crestor] 10 mg PO DAILY 06/14/16 [History] Aspirin [Lo-Dose Aspirin EC] 81 mg PO DAILY 08/02/16 [History] Citalopram [CeleXA] 20 mg PO DAILY 08/02/16 [History] Ranitidine HCl [Zantac] 300 mg PO DAILY 08/02/16 [History] Ranolazine [Ranexa] 500 mg PO BID 08/02/16 [History] Valsartan [Diovan] 80 mg PO QWEEK 08/02/16 [History] Albuterol Neb [Proventil Neb] 2.5 mg IH Q2H PRN #0 inhsol 12/15/16 [Rx] Bumetanide [Bumex] 1 mg PO DAILY tablet 12/15/16 [Rx] DiphenhydraMINE [Benadryl] 25 mg PO HS PRN #0 capsule 12/15/16 [Rx] Isosorbide MONOnitrate (24 HR) [Imdur] 30 mg PO DAILY tab.er.24h 12/15/16 [Rx] Allergies/Adverse Reactions: Allergies Hydroxychloroquine [From Plaquenil] Allergy (Verified 12/11/16 06:18) Blurry Vision Penicillins Allergy (Verified 12/11/16 06:18) Swelling of Lip/Tongue/Throat - Respiratory Orders Smoking Cessation: Smoking cessation has been advised. For more information, call the [place] Tobacco Quit Line at 5-196-MQKF-NOW. - Lab Orders Lab Orders: Other (include drug levels w/frequency) (CBC with differential, BMP , BNP peptide, magnesium level in 5 days) - Mobility Orders Ambulate - Rehabiliation Orders Rehab Potential: Good Rehab Orders: Evaluation for Physical Therapy, Evaluation for Occupational Therapy - Diet Orders No Added Salt (MISAEL) CERTIFICATION: I certify that the transfer of the above named patient to an Extended Care Facility is necessary for the continuing treatment of the diagnosis listed. The above information is true and accurate reflection of patient's current condition. Confidential - Redisclosure prohibited without a patient's written consent.
[2016-12-15] MEDS: Budesonide/Formoterol 160/4.5 MDI IH SCH (11:11)
== END 2016-12-15 13:15 | DRG 291 ==
LOC: INPPIK 06:17 → EMEROOPIK 06:17 → INPPIK 09:07
PROVIDERS: ADMIT Internal Medicine; ATTEND Internal Medicine

== ENCOUNTER 2017-07-17 14:28 | Inpatient (IN) ==
--- NOTE | 2017-07-17 15:31 | Emergency Department Note ---
Disposition Clinical Impression: Congestive heart failure Disposition: Admitted As Inpatient Condition: Fair Time of Disposition: 16:48 (eulogio saucedav [facility]) SOB HPI - General Chief Complaint: ED Shortness of Breath/Dyspnea Stated Complaint: SHORTNESS OF BREATH Time Seen by Provider: 07/17/17 14:50 Source: patient Limitations: no limitations Nursing Notes Reviewed: Yes Vital Signs Reviewed: Yes - History of Present Illness Patient's been having increasing shortness of breath but no chest pain no chest pressure she has had no palpitation she denies diarrhea melena hematochezia or hematemesis states that she has had a cough worse with activity denies numbness tingling weakness denies any calf pain or tenderness noted denies any rashes lesions denies any history of chest pain daughter states that she is having increasing shortness of breath she apparently fell about 3 days ago causing laceration to chin but did not come into the emergency room at that time for evaluation she denies the any syncope just profound weakness and shortness of breath Pt Subjective Complaint: shortness of breath Onset (ago): day(s) Context: occurred during exertion Severity: moderate Consistency/Duration: gradually worsening Improves with: nothing Worsens with: nothing Known history of: congestive heart failure Associated symptoms: Reports: orthopnea, palpitations, other (Dyspnea with activity). Denies: chest pain, pain with inspiration, fever, cough, wheezing, sputum production, lower extremity pain, polyuria, polydipsia, parasthesias, hemoptysis, diaphoresis, nausea/vomiting, syncope, abdominal pain, sense of impending doom Treatment prior to arrival: oxygen Cough present: No Sputum production: No - Related Data Home Medications Medication Instructions Recorded Confirmed Clopidogrel Bisulfate [Plavix] 75 mg PO DAILY 06/14/16 07/17/17 Metoprolol [Lopressor] 100 mg PO DAILY 06/14/16 07/17/17 Rosuvastatin Calcium [Crestor] 40 mg PO DAILY 06/14/16 07/17/17 Aspirin [Lo-Dose Aspirin EC] 81 mg PO DAILY 08/02/16 07/17/17 Citalopram [CeleXA] 20 mg PO DAILY 08/02/16 07/17/17 Ranitidine HCl [Zantac] 300 mg PO DAILY 08/02/16 07/17/17 Ranolazine [Ranexa] 500 mg PO BID 08/02/16 07/17/17 Valsartan [Diovan] 80 mg PO DAILY 08/02/16 07/17/17 Acetaminophen [Non-Aspirin Extra 500 mg PO Q4H PRN 07/17/17 07/17/17 Strength] Biotin [Neil Biotin] 10,000 mcg PO DAILY 07/17/17 07/17/17 Polyethylene Glycol 3350 [MiraLAX] 17 gm PO DAILY 07/17/17 07/17/17 Previous Rx's Medication Instructions Recorded Bumetanide [Bumex] 1 mg PO DAILY tablet 12/15/16 Isosorbide MONOnitrate (24 HR) 30 mg PO DAILY tab.er.24h 12/15/16 [Imdur] Allergies Allergy/AdvReac Type Severity Reaction Status Date / Time Hydroxychloroquine Allergy Blurry Verified 12/11/16 06:18 [From Plaquenil] Vision Penicillins Allergy Swelling Verified 12/11/16 06:18 of Lip/Tongue/Throat All systems ED: reviewed and negative except as stated. Review of Systems: As Per HPI Constitutional: Reports: weakness. Denies: fever, chills Eyes: Denies: eye pain, eye discharge ENT ED: Denies: ear pain, throat pain, congestion Cardiovascular: Reports: dyspnea on exertion, edema. Denies: chest pain, palpitations Respiratory: Reports: other (Rolfe or crackles) Gastrointestinal: Denies: abdominal pain, nausea, vomiting Genitourinary: Denies: urgency, dysuria, frequency Musculoskeletal: Denies: back pain, neck pain Integumentary: Denies: rash, abrasion Neurological: Denies: headache Psychiatric: Denies: anxiety Endocrine: Reports: fatigue Hematological/Lymphatic: Denies: easy bleeding Allergic/Immunologic: Denies: facial swelling Past Medical History - Past Medical History Attestation: Yes The following information was validated with the patient. Source: patient, old records reviewed, nursing notes reviewed Medical history: Reports: CHF, hypertension, myocardial infarction Surgical history: Reports: cholecystectomy, hysterectomy Psychiatric history: Reports: anxiety - Social History Smoking Status: Never smoker Smokeless Tobacco Status: No Alcohol use: Reports: none Drug use: Reports: none Physical Exam - General Limitations: no limitations General appearance: alert, in no apparent distress, cachectic - Head Head exam: atraumatic, normocephalic, normal inspection - Eye Eye exam: Present: normal appearance, PERRL, EOMI - ENT ENT exam: normal exam, normal oropharynx, mucous membranes moist - Neck Neck exam: Present: normal inspection, full ROM, trachea midline - Chest Chest inspection: Present: normal inspection, symmetric chest wall rise - Respiratory Respiratory exam: Present: normal lung sounds bilaterally, other (Crackles in the bases) - Cardiovascular Cardiovascular exam: Present: regular rate, normal rhythm, normal heart sounds - Abdominal Exam Abdominal exam: Present: soft, Non-Tender, normal bowel sounds. Absent: mass, pulsatile mass - Extremities Exam Extremities exam: Present: normal inspection, full ROM, normal capillary refill , pedal edema. Absent: tenderness, joint swelling, calf tenderness - Expanded Lower Extremity Exam Neurovascular/Tendon exam: Present: normal capillary refill, normal fine/light touch Gait: observed and normal - Back Exam Back exam: Present: normal inspection, full ROM. Absent: muscle spasm - Neurological Exam Neurological exam: Present: alert, oriented X3, CN II-XII intact, normal gait - Psychiatric Psychiatric exam: Present: normal affect, normal mood - Skin Skin exam: Present: warm, dry, intact, normal color Course Course Narrative: He was seen and examined patient was noted to have a laceration to chin which should have been repaired couple of days ago but is only 3 days post-incident x- rays and labs were obtained though the x-ray does not show congestive heart failure clinically she does show congestive heart for as result patient was given Lasix patient be admitted transferred to [facility] I spoke with Dr. Park we discussed the fact that she has an elevated troponin but she is a DNR CC the family is insisting upon her staying here patient transferred to [facility] stable chest pain or discomfort other than dyspnea - Reevaluation(s) Reevaluation #1: Elevated d-dimer may be as a result of the recent fall causing injury to the chin and neck area with bruising and extension which would give the appearance that they do have an elevated d-dimer which could be secondary to thrombus she has chronic left lower extremity swelling but it is no worse than usual and as result Vital Signs Temperature 100.5 F H 07/17/17 14:30 Pulse Rate 86 07/17/17 14:30 Respiratory Rate 20 07/17/17 14:30 Blood Pressure 161/77 07/17/17 14:30 O2 Sat by Pulse Oximetry 99 07/17/17 14:30 Temperature 98.7 F 07/18/17 00:35 Pulse Rate 65 07/18/17 00:35 Respiratory Rate 16 07/18/17 00:35 Blood Pressure 131/87 07/18/17 00:35 O2 Sat by Pulse Oximetry 98 07/18/17 00:35 Oxygen Delivery Oxygen Delivery Room Air Shortness of Breath/Dyspnea - Differential Diagnosis Likely: congestive heart failure, pneumonia - Medical Records Medical records reviewed: Yes I reviewed the patient's medical records. - Lab Data Lab results reviewed: Yes I reviewed the patient's lab results. Result diagrams: 07/17/17 15:47 07/17/17 15:47 Lab Results 07/17/17 07/17/17 07/17/17 Range/Units 15:47 15:47 15:47 WBC 6.8 (4.3-11.1) K/mcL RBC 3.12 L (3.82-4.97) M/mcL Hgb 11.0 L (11.5-15.4) g/dL Hct 33.6 L (35.3-44.9) % MCV 107.7 H (83.0-100.0) fL MCH 35.3 H (28.0-33.3) pg MCHC 32.7 (31.6-35.5) g/dL RDW 12.7 (11.5-14.5) % Plt Count 120 L (140-400) K/mcL MPV 11.2 (9.4-12.4) fL Immature Gran % 0.9 (0-4) % Seg Neutrophils % 85.4 % Lymphocytes % 6.6 % Monocytes % 5.6 % Eosinophils % 1.2 % Basophils % 0.3 % Neutrophils # 5.8 (1.6-8.9) K/mcL Lymphocytes # 0.5 L (0.6-4.6) K/mcL Monocytes # 0.4 (0.0-1.3) K/mcL Eosinophils # 0.1 (0.0-0.6) K/mcL Basophils # 0.0 (0.0-0.2) K/mcL PT 11.8 (9.4-12.1) Seconds INR 1.1 APTT 22.1 L (26.0-36.0) Seconds D-Dimer 4162 H (0-500) ng/mLFEU Sodium 137 (136-145) mEq/L Potassium 4.7 H (3.5-4.5) mEq/L Chloride 101 (98-109) mEq/L Carbon Dioxide 24 (19-29) mEq/L BUN 29 H (7-20) mg/dL Creatinine 1.62 H (0.57-1.11) mg/dL Est GFR ( Amer) 37 L (> 60) Est GFR (Non-Af Amer) 30 L (> 60) BUN/Creatinine Ratio 18 (6-26) Glucose 126 H (70-99) mg/dL Calculated Osmolality 291 (280-300) Calcium 9.1 (8.6-10.8) mg/dL Magnesium 2.1 (1.6-2.6) mg/dL Troponin I (0-0.03) ng/mL B-Natriuretic Peptide (0-100) pg/mL 07/17/17 07/17/17 Range/Units 15:47 15:47 WBC (4.3-11.1) K/mcL RBC (3.82-4.97) M/mcL Hgb (11.5-15.4) g/dL Hct (35.3-44.9) % MCV (83.0-100.0) fL MCH (28.0-33.3) pg MCHC (31.6-35.5) g/dL RDW (11.5-14.5) % Plt Count (140-400) K/mcL MPV (9.4-12.4) fL Immature Gran % (0-4) % Seg Neutrophils % % Lymphocytes % % Monocytes % % Eosinophils % % Basophils % % Neutrophils # (1.6-8.9) K/mcL Lymphocytes # (0.6-4.6) K/mcL Monocytes # (0.0-1.3) K/mcL Eosinophils # (0.0-0.6) K/mcL Basophils # (0.0-0.2) K/mcL PT (9.4-12.1) Seconds INR APTT (26.0-36.0) Seconds D-Dimer (0-500) ng/mLFEU Sodium (136-145) mEq/L Potassium (3.5-4.5) mEq/L Chloride (98-109) mEq/L Carbon Dioxide (19-29) mEq/L BUN (7-20) mg/dL Creatinine (0.57-1.11) mg/dL Est GFR ( Amer) (> 60) Est GFR (Non-Af Amer) (> 60) BUN/Creatinine Ratio (6-26) Glucose (70-99) mg/dL Calculated Osmolality (280-300) Calcium (8.6-10.8) mg/dL Magnesium (1.6-2.6) mg/dL Troponin I 0.16 H* (0-0.03) ng/mL B-Natriuretic Peptide 2104 H (0-100) pg/mL - Radiology Data Radiology results reviewed: Yes I reviewed the patient's radiology results. - EKG Data EKG attestation: Yes I reviewed and interpreted this EKG. EKG results narrative: Sinus rhythm right bundle branch block unifocal PVC no ST segment elevation or ischemic pattern noted rate TX of 143 QRS 128 QT 442 axis -24 Critical Care Time Critical Care Time: No
[2017-07-17 15:56] LABS: Basophils % 0.3 %; Eosinophils # 0.1 K/mcL (0.0-0.6); Eosinophils % 1.2 %; Hematocrit 33.6 % (35.3-44.9); Immature Granulocytes % 0.9 % (0-4); Lymphocytes # 0.5 K/mcL (0.6-4.6); Lymphocytes % 6.6 %; Mean Corpuscular HGB Conc 32.7 g/dL (31.6-35.5); Mean Corpuscular Hemoglobin 35.3 pg (28.0-33.3); Mean Corpuscular Volume 107.7 fL (83.0-100.0); Mean Platelet Volume 11.2 fL (9.4-12.4); Monocytes # 0.4 K/mcL (0.0-1.3); Monocytes % 5.6 %; Neutrophils # 5.8 K/mcL (1.6-8.9); Platelet Count 120 K/mcL (140-400); Red Blood Count 3.12 M/mcL (3.82-4.97); Red Cell Distribution Width 12.7 % (11.5-14.5); Segmented Neutrophils % 85.4 %
[2017-07-17 16:00] LABS: INR 1.1; Prothrombin Time 11.8 Seconds (9.4-12.1)
[2017-07-17 16:03] LABS: Activated Partial Thrombo Time 22.1 Seconds (26.0-36.0)
[2017-07-17 16:10] LABS: Calcium 9.1 mg/dL (8.6-10.8); Magnesium 2.1 mg/dL (1.6-2.6); Potassium 4.7 mEq/L (3.5-4.5)
[2017-07-17] MEDS ORDERED: Furosemide 40 MG/4 ML VIAL IVP ONE (16:50)
[2017-07-17] MEDS ORDERED: Naloxone 0.4 MG/ML INJ IVP PRN (18:25)
[2017-07-17] MEDS: Bumetanide 1 MG/4 ML VIAL IVP SCH (20:39)
[2017-07-17] MEDS: Ranolazine 500 MG TAB.ER.12H PO SCH (20:40)
[2017-07-18 06:20] LABS: Basophils % 0.2 %; Eosinophils # 0.1 K/mcL (0.0-0.6); Eosinophils % 0.9 %; Hematocrit 32.9 % (35.3-44.9); Immature Granulocytes % 0.7 % (0-4); Lymphocytes # 0.9 K/mcL (0.6-4.6); Lymphocytes % 16.2 %; Mean Corpuscular HGB Conc 33.4 g/dL (31.6-35.5); Mean Corpuscular Hemoglobin 35.7 pg (28.0-33.3); Mean Corpuscular Volume 106.8 fL (83.0-100.0); Mean Platelet Volume 10.8 fL (9.4-12.4); Monocytes # 0.7 K/mcL (0.0-1.3); Monocytes % 12.5 %; Neutrophils # 3.8 K/mcL (1.6-8.9); Platelet Count 112 K/mcL (140-400); Red Blood Count 3.08 M/mcL (3.82-4.97); Red Cell Distribution Width 12.9 % (11.5-14.5); Segmented Neutrophils % 69.5 %
[2017-07-18 06:24] LABS: INR 1.1; Prothrombin Time 12.3 Seconds (9.4-12.1)
[2017-07-18 06:27] LABS: Activated Partial Thrombo Time 24.5 Seconds (26.0-36.0)
[2017-07-18 06:36] LABS: Calcium 8.8 mg/dL (8.6-10.8); Potassium 3.9 mEq/L (3.5-4.5)
[2017-07-18] MEDS: Aspirin Enteric Coated 81 MG Tablet PO SCH (08:38)
[2017-07-18] MEDS: Isosorbide MONOnitrate (24 HR) 30 MG TAB.ER.24H PO SCH (08:38)
[2017-07-18] MEDS: Ranolazine 500 MG TAB.ER.12H PO SCH ×2 (08:38→21:32)
[2017-07-18] MEDS: Famotidine 20 MG TABLET PO SCH (08:39)
[2017-07-18] MEDS: (Biotin [Mega Biotin] 10,000 MCG) PO SCH (08:41)
--- NOTE | 2017-07-18 15:32 | Internal Med History&Physical ---
Date of Encounter: 07/18/17 Time of Encounter: 15:00 Assessment and Plan (1) Influenza Current visit: Yes Status: Acute She has been started on Tamiflu. (2) Dyspnea Current visit: Yes Status: Acute Suspect multifactorial including respiratory infection with underlying heart failure. Qualifiers: Dyspnea type: shortness of breath Qualified Code(s): R06.02 - Shortness of breath; R06.00 - Dyspnea, unspecified; R06.01 - Orthopnea (3) Congestive heart failure Current visit: Yes Status: Chronic Continue Bumex, Imdur, Lopressor, and Diovan. Qualifiers: Congestive heart failure type: combined Congestive heart failure chronicity : chronic Qualified Code(s): I50.42 - Chronic combined systolic (congestive) and diastolic (congestive) heart failure (4) CKD (chronic kidney disease) stage 3, GFR 30-59 ml/min Current visit: No Status: Chronic Will monitor renal indices. (5) Macrocytic anemia Current visit: No Status: Chronic Anemia testing 12/13/2016 showed no factor deficiency. Suspect due to chronic kidney disease. (6) Hypertension Current visit: No Status: Chronic Continue Diovan, Lopressor, and Bumex Qualifiers: Hypertension type: essential hypertension Qualified Code(s): I10 - Essential (primary) hypertension Internal Medicine - H&P: HPI Chief complaint: Dyspnea Admitted From: Emergency Dept Plans for Post Hospital Care: Home History of present illness: Ms. Palomo is a 81 year old female who was sent from [facility] to emergency room after she had progressive dyspnea over the preceding 1-2 days. She was evaluated and felt to have exacerbation of CHF. She has tested positive for influenza A. She was admitted to [facility] floor for ongoing care needs. Past Med Surg Social Fam HX - Past Medical History Medical history: CHF, hypertension, myocardial infarction Psychiatric history: anxiety - Past Surgical History Surgical History: cholecystectomy, hysterectomy - Social History Smoking Status: Never smoker Smokeless Tobacco Status: No Alcohol use: none Drug use: none Internal Medicine - H&P: Meds Clopidogrel Bisulfate [Plavix] 75 mg PO DAILY 06/14/16 [History] Metoprolol [Lopressor] 100 mg PO DAILY 06/14/16 [History] Rosuvastatin Calcium [Crestor] 40 mg PO DAILY 06/14/16 [History] Aspirin [Lo-Dose Aspirin EC] 81 mg PO DAILY 08/02/16 [History] Citalopram [CeleXA] 20 mg PO DAILY 08/02/16 [History] Ranitidine HCl [Zantac] 300 mg PO DAILY 08/02/16 [History] Ranolazine [Ranexa] 500 mg PO BID 08/02/16 [History] Valsartan [Diovan] 80 mg PO DAILY 08/02/16 [History] Bumetanide [Bumex] 1 mg PO DAILY tablet 12/15/16 [Rx] Isosorbide MONOnitrate (24 HR) [Imdur] 30 mg PO DAILY tab.er.24h 12/15/16 [Rx] Acetaminophen [Non-Aspirin Extra Strength] 500 mg PO Q4H PRN 07/17/17 [History] Biotin [Neil Biotin] 10,000 mcg PO DAILY 07/17/17 [History] Polyethylene Glycol 3350 [MiraLAX] 17 gm PO DAILY 07/17/17 [History] 3 Allergy/AdvReac Type Severity Reaction Status Date / Time Hydroxychloroquine Allergy Blurry Verified 12/11/16 06:18 [From Plaquenil] Vision Penicillins Allergy Swelling Verified 12/11/16 06:18 of Lip/Tongue/Throat All Systems PM: A 10-system review of systems was performed and is negative for pertinent findings except as documented above in the HPI. Review of systems: Review of systems from her November 2016 [facility] hospitalization were reviewed and revised as below. Gen.: Her weight has been stable the past few months at approximately 82 kg Cardiovascular: She has history of hypertension. She has known ASHD and has had 3 myocardial infarctions with the most recent 2013. She had 5 vessel CABG 2012. She had 3 cardiac stents placed in 2002. Her most recent heart catheter was 2013 at the last MT without further intervention done. A Regadenoson stress test 04/15/2017 showed fixed defects consistent with old MIs as well as some areas suggestive of reversible ischemia. Echocardiogram done August 2016 showed LVEF of 25-30%. There was mild diastolic dysfunction and severe global LV systolic dysfunction. There was [id number] AR. The estimated RVSP was elevated at 43 mmHg. Limited echocardiogram 04/15/2017 showed LVEF of 35%. She has had 8-10 syncopal episodes with falls with numerous near syncopal episodes occluding 2 within the past few days. A classroom monitor ordered by her [place] internal medicine physician assistant showed no findings to explain the syncope/ near syncope per her report. She had DVT 2004 and was briefly on Coumadin. Respiratory: She is a lifelong nonsmoker and has no documented chronic lung disease GI: She has had cholecystectomy. She denies disorders of her liver or exocrine pancreas. She denies melena or hematochezia vomiting or diarrhea. : She was told that she had kidney failure at the time of her CABG in 2012. She has had remote kidney stone. She denies other kidney or bladder disorders. She has had a hysterectomy and bladder suspension surgery Neurologic: She denies large distribution strokes or seizures. Endocrine: She has hyperlipidemia but denies diabetes or thyroid disease Hematology/oncology: She denies blood disorders cancers or anemia Psychiatric: She has anxiety but denies depression or other mental health issues Musk skeletal: She has rheumatoid arthritis and DJD. She has had multiple back surgeries. She has had bilateral total hip replacements and a left total knee replacement remotely. - Constitutional Vitals: Temp Pulse Resp BP Pulse Ox 97.9 F 61 18 73/41 97 07/18/17 10:41 07/18/17 10:41 07/18/17 10:41 07/18/17 10:41 07/18/17 10:41 Exam: Gen.: She is a well-developed well-nourished female resting quietly in bed who appears in no severe distress at the present time HEENT: Head is atraumatic and normocephalic. Eyes: EOMI. There is no scleral icterus. Mouth: Mucosa is moist. Neck: Supple and nontender. There is no thyromegaly or adenopathy noted. Heart: Regular without murmurs gallops or ectopics Lungs: No wheezes or crackles are heard. Abdomen: Soft and nontender. No masses or guarding are noted. Extremities: There is no cyanosis edema or clubbing noted. Dorsalis pedis and posttibial pulses are trace to 1+ palpable bilaterally. Neurologic: Mental status: She is talkative and appropriate in conversation. Cranial nerves: Smile is symmetric. Forehead wrinkles bilaterally. Tongue protrudes midline. EOMI. Motor: There is no pronator drift. Cerebellar: Finger to nose is intact bilaterally. Skin: Warm and dry Internal Med - H&P Results - Labs CBC & Chem 7: 07/18/17 06:12 07/18/17 06:12 Labs: Short CBC 07/18/17 Range/Units 06:12 WBC 5.5 (4.3-11.1) K/mcL Hgb 11.0 L (11.5-15.4) g/dL Hct 32.9 L (35.3-44.9) % Plt Count 112 L (140-400) K/mcL Neutrophils # 3.8 (1.6-8.9) K/mcL BMP 07/18/17 06:12 Sodium 138 Potassium 3.9 Chloride 100 Carbon Dioxide 26 BUN 33 H Creatinine 1.58 H Glucose 105 H Calcium 8.8 Cardiac Enzymes 07/17/17 Range/Units 20:53 Troponin I 0.22 H* (0-0.03) ng/mL
[2017-07-18] MEDS: Bumetanide 1 MG/4 ML VIAL IVP SCH (15:52)
[2017-07-18] MEDS: Valsartan 80 MG TABLET PO SCH (15:53)
[2017-07-18] MEDS: *HR* Digoxin 0.125 MG TABLET PO SCH (16:17)
--- NOTE | 2017-07-18 18:16 | Electrocardiograph Report ---
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
[2017-07-18] MEDS ORDERED: traZODone 50 MG TABLET PO PRN (20:55)
[2017-07-19] MEDS ORDERED: *HR* Enoxaparin 30 MG/0.3 ML SYRINGE SQ SCH (06:00)
[2017-07-19 06:45] LABS: Basophils % 0.2 %; Eosinophils # 0.4 K/mcL (0.0-0.6); Eosinophils % 8.8 %; Hematocrit 34.3 % (35.3-44.9); Immature Granulocytes % 0.7 % (0-4); Lymphocytes # 0.7 K/mcL (0.6-4.6); Lymphocytes % 16.2 %; Mean Corpuscular HGB Conc 32.1 g/dL (31.6-35.5); Mean Corpuscular Hemoglobin 35.3 pg (28.0-33.3); Mean Corpuscular Volume 109.9 fL (83.0-100.0); Mean Platelet Volume 11.9 fL (9.4-12.4); Monocytes # 0.5 K/mcL (0.0-1.3); Monocytes % 12.1 %; Neutrophils # 2.8 K/mcL (1.6-8.9); Platelet Count 101 K/mcL (140-400); Red Blood Count 3.12 M/mcL (3.82-4.97); Red Cell Distribution Width 13.1 % (11.5-14.5)
[2017-07-19 07:08] LABS: Calcium 8.8 mg/dL (8.6-10.8); Potassium 4.4 mEq/L (3.5-4.5)
[2017-07-19] MEDS ORDERED: Oseltamivir Phosphate 30 MG CAPSULE PO SCH (09:00)
[2017-07-19] MEDS ORDERED: Bumetanide 1 MG TABLET PO SCH (09:00)
[2017-07-19] MEDS: Aspirin Enteric Coated 81 MG Tablet PO SCH (09:24)
[2017-07-19] MEDS: Isosorbide MONOnitrate (24 HR) 30 MG TAB.ER.24H PO SCH (09:24)
[2017-07-19] MEDS: Ranolazine 500 MG TAB.ER.12H PO SCH (09:24)
[2017-07-19] MEDS: Famotidine 20 MG TABLET PO SCH (09:24)
[2017-07-19] MEDS: *HR* Digoxin 0.125 MG TABLET PO SCH (09:25)
[2017-07-19] MEDS: (Biotin [Mega Biotin] 10,000 MCG) PO SCH (09:38)
[2017-07-19] MEDS: Valsartan 80 MG TABLET PO SCH (09:41)
[2017-07-19 11:10] VITALS: BP 96/52
--- NOTE | 2017-07-19 14:22 | Discharge Summary ---
Date of Encounter: 07/19/17 Time of Encounter: 14:10 - Discharge Diagnosis (1) Influenza Priority: Primary Status: Acute (2) Dyspnea Priority: Secondary Status: Acute Qualifiers: Dyspnea type: shortness of breath Qualified Code(s): R06.02 - Shortness of breath; R06.00 - Dyspnea, unspecified; R06.01 - Orthopnea (3) Congestive heart failure Priority: Secondary Status: Chronic Qualifiers: Congestive heart failure type: combined Congestive heart failure chronicity : chronic Qualified Code(s): I50.42 - Chronic combined systolic (congestive) and diastolic (congestive) heart failure (4) CKD (chronic kidney disease) stage 3, GFR 30-59 ml/min Priority: Secondary Status: Chronic (5) Macrocytic anemia Priority: Secondary Status: Chronic (6) Hypertension Priority: Secondary Status: Chronic Qualifiers: Hypertension type: essential hypertension Qualified Code(s): I10 - Essential (primary) hypertension - Discharge Medications Home Medications: Clopidogrel Bisulfate [Plavix] 75 mg PO DAILY 06/14/16 [History] Metoprolol [Lopressor] 100 mg PO DAILY 06/14/16 [History] Rosuvastatin Calcium [Crestor] 40 mg PO DAILY 06/14/16 [History] Aspirin [Lo-Dose Aspirin EC] 81 mg PO DAILY 08/02/16 [History] Citalopram [CeleXA] 20 mg PO DAILY 08/02/16 [History] Ranitidine HCl [Zantac] 300 mg PO DAILY 08/02/16 [History] Ranolazine [Ranexa] 500 mg PO BID 08/02/16 [History] Valsartan [Diovan] 80 mg PO DAILY 08/02/16 [History] Bumetanide [Bumex] 1 mg PO DAILY tablet 12/15/16 [Rx] Isosorbide MONOnitrate (24 HR) [Imdur] 30 mg PO DAILY tab.er.24h 12/15/16 [Rx] Acetaminophen [Non-Aspirin Extra Strength] 500 mg PO Q4H PRN 07/17/17 [History] Biotin [Neil Biotin] 10,000 mcg PO DAILY 07/17/17 [History] Polyethylene Glycol 3350 [MiraLAX] 17 gm PO DAILY 07/17/17 [History] Digoxin [Lanoxin] 0.125 mg PO Q48H 365 Days tablet 07/19/17 [Rx] Oseltamivir Phosphate [Tamiflu] 30 mg PO DAILY 4 Days capsule 07/19/17 [Rx] traZODone [TraZODone] 50 mg PO HS PRN tablet 07/19/17 [Rx] Allergies/Adverse Reactions: 3 Allergy/AdvReac Type Severity Reaction Status Date / Time Hydroxychloroquine Allergy Blurry Verified 12/11/16 06:18 [From Plaquenil] Vision Penicillins Allergy Swelling Verified 12/11/16 06:18 of Lip/Tongue/Throat Date of admission: 07/19/17 09:43 Primary care physician: Martin Park MD - Patient Status Disposition: Transfer SNF Condition: Fair Functional capacity at discharge: uses cane/walker Overall status at discharge: patient is progressing back to baseline - Discharge Instructions Follow Up With: Martin Park MD [Primary Care Provider] - 1 week - Diet and Activity Activity: resume usual activities as tolerated Diet: advance to your usual diet Hospital course: Ms. Palomo is a 81 year old female who was sent from [facility] to emergency room after she had progressive dyspnea over the preceding 1-2 days. She was evaluated and felt to have exacerbation of CHF. She has tested positive for influenza A. She was admitted to [facility] floor for ongoing care needs. Initial orders were written by the emergency room physician. I saw her on July 18 and performed the history and physical. She was started on Tamiflu for influenza A. She remained afebrile and vital signs were stable otherwise during her hospital stay. Her regular medications were generally continued as previously. I added Lanoxin for evidence of heart failure with BN peptide elevated at 2104. She had good clinical response with BN peptide decreasing to 407 by the day of discharge. Her creatinine yeyo to 2.06 the day of discharge with estimated GFR 23. This will be monitored at the long term. On July 19 she felt stable for discharge back to [facility] where she will follow with me. She will continue with Tamiflu for 4 additional days at discharge. - Time Spent with Patient Total time spent providing and/or coordinating discharge services: - Constitutional Vitals: Temp Pulse Resp BP Pulse Ox 98.1 F 60 16 96/52 97 07/19/17 11:09 07/19/17 11:09 07/19/17 11:09 07/19/17 11:09 07/19/17 11:09
--- NOTE | 2017-07-19 14:34 | Physician Discharge Referral ---
ExtendedCare Referral Info Transfer To: [facility] Provider in Charge: Xavier Provider in Charge after Transfer: PCP (Xavier) - Diagnosis (1) Influenza Priority: Primary Status: Acute (2) Dyspnea Priority: Secondary Status: Acute (3) Congestive heart failure Priority: Secondary Status: Chronic (4) CKD (chronic kidney disease) stage 3, GFR 30-59 ml/min Priority: Secondary Status: Chronic (5) Macrocytic anemia Priority: Secondary Status: Chronic (6) Hypertension Priority: Secondary Status: Chronic Prognosis: Good Aware of Diagnosis: Patient Aware of Prognosis: Patient - Transfer Medications Home Medications: Clopidogrel Bisulfate [Plavix] 75 mg PO DAILY 06/14/16 [History] Metoprolol [Lopressor] 100 mg PO DAILY 06/14/16 [History] Rosuvastatin Calcium [Crestor] 40 mg PO DAILY 06/14/16 [History] Aspirin [Lo-Dose Aspirin EC] 81 mg PO DAILY 08/02/16 [History] Citalopram [CeleXA] 20 mg PO DAILY 08/02/16 [History] Ranitidine HCl [Zantac] 300 mg PO DAILY 08/02/16 [History] Ranolazine [Ranexa] 500 mg PO BID 08/02/16 [History] Valsartan [Diovan] 80 mg PO DAILY 08/02/16 [History] Bumetanide [Bumex] 1 mg PO DAILY tablet 12/15/16 [Rx] Isosorbide MONOnitrate (24 HR) [Imdur] 30 mg PO DAILY tab.er.24h 12/15/16 [Rx] Acetaminophen [Non-Aspirin Extra Strength] 500 mg PO Q4H PRN 07/17/17 [History] Biotin [Neil Biotin] 10,000 mcg PO DAILY 07/17/17 [History] Polyethylene Glycol 3350 [MiraLAX] 17 gm PO DAILY 07/17/17 [History] Digoxin [Lanoxin] 0.125 mg PO Q48H 365 Days tablet 07/19/17 [Rx] Oseltamivir Phosphate [Tamiflu] 30 mg PO DAILY 4 Days capsule 07/19/17 [Rx] traZODone [TraZODone] 50 mg PO HS PRN tablet 07/19/17 [Rx] Allergies/Adverse Reactions: 3 Allergy/AdvReac Type Severity Reaction Status Date / Time Hydroxychloroquine Allergy Blurry Verified 05/17/17 06:18 [From Plaquenil] Vision Penicillins Allergy Swelling Verified 12/11/16 06:18 of Lip/Tongue/Throat - Respiratory Orders Smoking Cessation: Smoking cessation has been advised. For more information, call the [place] Tobacco Quit Line at 4-736-LUNW-NOW. - Mobility Orders Ambulate - Rehabiliation Orders Rehab Potential: Fair - Diet Orders Regular CERTIFICATION: I certify that the transfer of the above named patient to an Extended Care Facility is necessary for the continuing treatment of the diagnosis listed. The above information is true and accurate reflection of patient's current condition. Confidential - Redisclosure prohibited without a patient's written consent.
== END 2017-07-19 16:03 | DRG 194 ==
LOC: EMEROOPIK 14:28 → INPPIK 14:28
PROVIDERS: ADMIT Internal Medicine; ATTEND Internal Medicine